=== PATIENT | female | born 1950 | race Asian ===

== ENCOUNTER → 2023-10-10 15:43 | Outpatient (REF) | payer OTHER, SELFPAY | LOC: RAD 15:43 | PROVIDERS: ATTENDING PHYSICIAN Internal Medicine | DX: G47.34 Idiopathic sleep related nonobstructive alveolar hypoventilation (principal); R51.9 Headache, unspecified; I10 Essential (primary) hypertension; Z86.16 Personal history of COVID-19 | CPT/HCPCS: 71046 ==

== ENCOUNTER → 2023-11-13 08:23 | Outpatient (REF) | payer OTHER, SELFPAY | LOC: RSP 08:23 | PROVIDERS: ATTENDING PHYSICIAN Internal Medicine | DX: G47.34 Idiopathic sleep related nonobstructive alveolar hypoventilation (principal); R51.9 Headache, unspecified; I10 Essential (primary) hypertension; Z86.16 Personal history of COVID-19 | CPT/HCPCS: 94727; 94729; 88738; 94010 ==

== ENCOUNTER → 2024-03-13 06:46 | Outpatient (REF) | payer OTHER, SELFPAY | LOC: RAD 06:46 | PROVIDERS: ATTENDING PHYSICIAN Internal Medicine; FAMILY PHYSICIAN Internal Medicine | DX: I10 Essential (primary) hypertension (principal) | CPT/HCPCS: 93975 ==

== ENCOUNTER 2024-09-16 13:13 | Emergency (ER) | payer OTHER, SELFPAY ==
[2024-09-16 13:19] VITALS: BP 127/64
[2024-09-16] MEDS: TYLENOL 650 MG PO (13:25)
[2024-09-16 13:46] LABS: % Basophils 0.3 % (0-2); % Immature Granulocytes 0.4 % (0-0.5); % Lymphocytes 9.4 % (20.5-51.1); % Monocytes 5.2 % (1.7-9.3); % Neutrophils 82.7 % (42.2-75.2); Absolute Basophils 0.1 10^3/uL (0-0.2); Absolute Eosinophils 0.3 10^3/uL (0-0.7); Absolute Immature Granulocytes 0.1 10^3/uL (0-0.05); Absolute Lymphocytes 1.6 10^3/uL (1.2-3.4); Absolute Monocytes 0.9 10^3/uL (0.1-0.6); Absolute Neutrophils 13.8 10^3/uL (1.4-6.5); Hematocrit 40.4 % (37.0-47.0); Hemoglobin 13.7 g/dL (12.0-16.0); Mean Corp Hgb Conc. 33.9 g/dL (33.0-37.0); Mean Corpuscular Hgb 28.1 pg (27.0-31.0); Mean Corpuscular Volume 82.8 fL (81.0-99.0); Mean Platelet Volume 9.5 fL (7.4-10.4); Nucleated Red Blood Cells % 0 %; Platelet Count 240 10^3/uL (130-400); Red Blood Cell Count 4.88 10^6/uL (4.20-5.40); Red Cell Dist. Width 13.9 % (11.5-14.5); White Blood Cell Count 16.7 10^3/uL (4.8-10.8)
[2024-09-16 14:00] LABS: ALT (SGPT) 36 U/L (0-35); AST (SGOT) 37 U/L (14-36); Albumin 4.4 g/dl (3.5-5.0); Alkaline Phosphatase 89 U/L (38-126); Blood Urea Nitrogen 17 mg/dl (7-17); Carbon Dioxide 25 mmol/L (22-30); Chloride 106 mmol/L (98-107); Glucose 131 mg/dl (70-99); Potassium 3.6 mmol/L (3.5-5.1); Sodium 142 mmol/L (135-145); Total Bilirubin 1.1 mg/dl (0.2-1.3); Total Protein 7.4 g/dl (6.3-8.2); eGFR > 60.00
[2024-09-16 14:08] LABS: COVID-19 Antigen Negative (Negative)
[2024-09-16 15:33] VITALS: BMI 26.7
[2024-09-16 18:30] LABS: TSH Reflex To Free T4 1.62 uIU/ml (0.47-4.68)
[2024-09-16 18:36] LABS: Urine Albumin 1+ (Neg - Trace); Urine Bilirubin Negative (Negative); Urine Character Clear (Clear); Urine Color Yellow; Urine Glucose Negative (Negative); Urine Ketone Negative (Negative); Urine Leukocyte Negative (Negative); Urine Nitrite Negative (Negative); Urine Occult Blood 1+ (Negative); Urine Specific Gravity 1.015 (<1.030); Urine Urobilinogen Negative (Neg - 1+)
[2024-09-16 19:07] LABS: Urine Bacteria Few (Negative); Urine Red Blood Cell 30-40 /HPF (0-2); Urine Squamous Cell 21-25 /LPF (Few); Urine White Cell 0-2 /HPF (0-5)
--- NOTE | 2024-09-16 19:15 | ED.GENMED ---
History of Present Illness
General
Chief Complaint: Fever
Source: patient and family
Exam Limitations: none
Time Seen by Provider: 09/16/24 16:29
Nursing documentation reviewed up to this point in time: agreed with
History of Present Illness
History of Present Illness:
74-year-old female with a past medical history of hypertension presents to the ER with her son for evaluation of fever. Patient reportedly feeling well when she woke up this morning and around 11 AM she began to have severe chills. Had some nausea
and vomiting. Came to the emergency room for assessment. She did receive Tylenol here and feels better after this. She has not had any chest pain, cough, shortness of breath. She has not had any abdominal pain but did have nausea as above. No
diarrhea. Denies dysuria or change in frequency. Denies similar symptoms in the past.
Past History
Past History
ED Past Medical History: Other (chronic back pain)
ED Past Surgical History: Orthopedic (L1 sx in [facility] 2012 for compression fx, had vertebroplasty)
Social History
Tobacco: Non-smoker
Alcohol: None
Drug: None
Personal:
Living: with family
Family History
Family History: Other (nc)
Review of Systems
Review of Systems
All Other Systems: ROS reviewed and negative except as documented in HPI and ROS
Constitutional: Reports fever, fatigue and chills
EENT: Denies sore throat or runny nose
Respiratory: Denies cough or trouble breathing
Cardiac: Denies chest pain or palpitations
ABD/GI: Reports nausea and vomiting; Denies abdominal pain or diarrhea
: Denies dysuria, frequency or flank pain
Musculoskeletal: Denies neck pain or back pain
Neurological: Denies headache
Phy Exam
Physical Exam
Physical Exam:
General: Awake, alert; no acute distress
Head: Normocephalic, atraumatic
Eyes: Conjunctiva normal, sclera anicteric
Throat: Airway intact, handling secretions
Neck: Trachea midline, supple without meningismus
Lungs: Clear to auscultation bilaterally, no wheezing, rales, rhonchi
Heart: Regular rate and rhythm, no murmurs, gallops, or rubs
Abd: Soft, non distended, mildly tender in the lower abdomen
Neuro: No gross deficits
Extremities: Warm and well-perfused
Scores
Heart Failure Risk
Heart Failure Risk Score: Not Applicable
Heart Score for Chest Pain Patients
STEMI patient?: Not applicable
Withdrawal Assessment of Alcohol
Withdrawal Assessment Completed?: Not applicable
Course
Orders/Labs/Results
Orders:
Orders
09/16/24 13:22
Acetaminophen [Tylenol] 650 mg .ROUTE .STK-MED ONE
09/16/24 13:24
Acetaminophen [Tylenol] 650 mg PO NOW STA
09/16/24 13:31
COVID-19 Antigen Urgent
Source: Nasal Swab
Complete Blood Count/With Diff Urgent
Comprehensive Metabolic Panel Urgent
TSH Reflex To Free T4 Urgent
Comment: ADD ON
Influenza A+B Rapid Molecular Urgent
[place] Source: Nasal Swab
Specimen Description:
09/16/24 16:39
CR Chest - 2 Views Urgent
Comment:
Reason For Exam: fever
09/16/24 16:46
Urinalysis Reflex To Culture Urgent
Date Specimen was Collected: 09/16/24
Time Specimen was Collected: 16:40
Urine Microscopic Reflex Cult Urgent
09/16/24 16:51
Add On- LAB Urgent
Tests Added?: tsh reflex to free t4
09/16/24 19:05
CT Abd/pelvis W Iv Cont Urgent
Comment:
Reason For Exam: hematuria, fever, N/V
Abnormal Lab Results
09/16/24 09/16/24
13:31 16:46
WBC 16.7 H 10^3/uL
(4.8-10.8)
Abs Immat Gran (auto) 0.1 H 10^3/uL
(0-0.05)
Absolute Neuts (auto) 13.8 H 10^3/uL
(1.4-6.5)
Absolute Monos (auto) 0.9 H 10^3/uL
(0.1-0.6)
Neutrophils % 82.7 H %
(42.2-75.2)
Lymphocytes % 9.4 L %
(20.5-51.1)
Creatinine 0.5 L mg/dL
(0.6-1.0)
Glucose 131 H mg/dl
(70-99)
AST 37 H U/L
(14-36)
ALT 36 H U/L
(0-35)
Ur Occult Blood Reflex 1+ A
(Negative)
Urine RBC 30-40 A /HPF
(0-2)
Urine Bacteria (Reflex) Few A
(Negative)
Urine Albumin (Reflex) 1+ A
(Neg - Trace)
09/16/24 13:31
09/16/24 13:31
Vital Signs
Initial and Last Documented VS:
Initial Vital Signs
Temp Pulse Resp BP Pulse Ox
38.7 C H 80 18 127/64 93
09/16/24 13:19 09/16/24 13:19 09/16/24 13:19 09/16/24 13:19 09/16/24 13:19
Last Documented Vital Signs
Temp Pulse Resp BP Pulse Ox
37.7 C 55 18 124/62 92
09/16/24 15:53 09/16/24 20:00 09/16/24 20:08 09/16/24 19:26 09/16/24 20:00
MDM/Problems Addressed
Differential Diagnosis Includes:
Viral syndrome, pneumonia, UTI, intra-abdominal infection
MDM/Problems Addressed:
74-year-old female presents for fever associated with some GI symptoms. Febrile here 38.73 Celsius otherwise normal vitals. Physical exam as above. She had lab work sent in triage including a CBC which showed a leukocytosis to 16.7. Her CMP
showed marginal elevated transaminases but normal T. bili. Plan to check viral swabs, urinalysis, chest x-ray. Check CT abdomen and pelvis. Treat fever. Reassess after the above.
Urinalysis negative for infection but positive for trace blood, few bacteria but no pyuria and squamous cells suggest degree of contamination. COVID and flu swabs were negative here. Chest x-ray shows no acute disease. CT is pending. Fever
improved with Tylenol.
CT shows no acute intra-abdominal process. I suspect this may be viral illness but given her leukocytosis and equivocal urinalysis will cover with antibiotics for possible UTI. Stable for discharge. Follow-up with PCP. All questions answered.
*Radiology
Radiology exam reviewed: preliminary read by ED provider and radiology read reviewed
*Pulse Oximetry
Patient hypoxic: no
*Critical Care Note
Total Time (30-74mins, 75-104mins- exclusive of procedures): Not Applicable
Data Reviewed
Review of Other/Old Records Reveals: Labs and Records
Source: patient
ED Attending Note
-
Portions of this chart may have been created with voice recognition software.� Occasional wrong word or��sound alike� substitutions may have occurred due to the inherent limitations of voice recognition software.
Discharge Plan
Departure
Patient Disposition: Home (Routine Discharge)
Date of Disposition: 09/16/24
Time of Disposition: 20:53
Patient with high blood pressure during this ER visit?: No
Discharge Problem:
Fever, Acute UTI
Instructions: Fever, Adult (DC)
Prescriptions:
New
cefdinir 300 mg capsule
300 mg PO BID Qty: 14 0RF
No Action
alendronate 70 mg Tablet
70 mg PO MO
fenofibrate micronized 67 mg Capsule
67 mg PO QPM
amlodipine 5 mg Tablet
5 mg PO DAILY
simvastatin 20 mg Tablet
20 mg PO HS
meclizine 12.5 mg tablet
12.5 mg PO TID Qty: 30 0RF
Referrals:
Meredith PAYNE [Other]
Fabrice Riggs MD [Primary Care Provider] - Follow up in 5-7 days
Activity Restrictions/Additional Instructions:
Thank you for visiting the Emergency Department at [facility].
1. Please schedule a follow up appointment as directed. Call first thing tomorrow morning to make an appointment.
2. If indicated, please take your medications as instructed and indicated on discharge paperwork.
3. If any of your symptoms do not improve, or persist, or become more severe within 6-12 hours, please return to the emergency department for further care.
4. Please return to the emergency department if you develop a headache, neck pain/stiffness, fever greater than 100.4F, chest pain, shortness of breath, persistent nausea, vomiting, slurred speech, difficulty walking, numbness/tingling, weakness,
signs of infection or any other symptoms that are worrisome to you.
Please call [phone] if you have any questions.
Interventions
Interventions:
*Risk Screen - Suicide Last Done: 09/16/24 13:19
*General Assessment Last Done: 09/16/24 13:19
*Neglect/Abuse Screening Last Done: 09/16/24 15:52
*ED- Fall Risk Assessment Last Done: 09/16/24 15:52
*ED COVID-19 Vaccine History Last Done: 09/16/24 13:19
ED- Neurological Assessment Last Done: 09/16/24 15:53
ED-Skin Assessment Last Done: 09/16/24 15:54
Discharge Date and Time
Print Language: MALAGASY
[2024-09-16 19:26] VITALS: BP 124/62
[2024-09-16 21:06] VITALS: BP 124/67
[2024-09-16] MEDS: ROCEPHIN 1000 MG IV (21:07)
== END 2024-09-16 21:14 | disposition home or self-care (01) ==
LOC: EMR 13:13
PROVIDERS: Emergency Medicine; EMERGENCY PHYSICIAN Emergency Medicine; PRIMARYCARE PHYSICIAN Internal Medicine
DX: R50.9 Fever, unspecified (principal); N39.0 Urinary tract infection, site not specified; R11.2 Nausea with vomiting, unspecified; R53.1 Weakness; R42 Dizziness and giddiness; Z11.52 Encounter for screening for COVID-19; I10 Essential (primary) hypertension; G89.29 Other chronic pain; M54.9 Dorsalgia, unspecified; G62.9 Polyneuropathy, unspecified
CPT/HCPCS: 99284; 96374; 71046; 74177; 80053; 81003; 81015; 84443; 85025; 87502; 87811; Q9967

== ENCOUNTER → 2024-11-05 13:38 | Outpatient (REF) | payer OTHER, SELFPAY | LOC: PAVMRI 13:38 | PROVIDERS: ATTENDING PHYSICIAN Otolaryngology; FAMILY PHYSICIAN Internal Medicine | DX: H91.8X3 Other specified hearing loss, bilateral (principal) | CPT/HCPCS: 70553; A9575 ==